=== PATIENT | female | born 1960 ===

== ENCOUNTER 2023-10-28 07:34 | Day surgery (SDC) | payer OTHER ==
[~2023-10-28 07:34] MED LIST: CILOSTAZOL50 MG PO; GRALISE600 MG PO; MONTELUKAST SODI4 M1 PO; SIMVASTATIN40 MG PO; SYNTHROID137 MCG PO; VITAMIN D31 ML
[2023-10-28] MEDS ORDERED: POVIDONE-IODINE 118 ML BOTT TOP ONE (12:58)
[2023-10-28] MEDS ORDERED: DIBUCAINE 30 GM TUBE ONE (12:58)
[2023-10-28] MEDS ORDERED: BUPIVACAINE HCL/MPF 0.5% 30ML VIAL ONE (12:58)
[2023-10-28] MEDS ORDERED: LIDOCAINE HCL 1%/EPINEPHRINE 20ML VIAL IJ ONE (12:59)
[2023-10-28] MEDS ORDERED: HEMOSTATIC MATRIX 1 KIT KIT TOP ONE (12:59)
[2023-10-28] MEDS ORDERED: CEFTRIAXONE SODIUM 2,000 MG VIAL ONE (13:03)
[2023-10-28] MEDS ORDERED: METRONIDAZOLE/SODIUM CHLORIDE 500 MG/100 ML PIGGYBACK IV ONE (13:03)
[2023-10-28] MEDS ORDERED: ONDANSETRON HCL 2 MG/ML VIAL ONE (14:39)
== END 2023-10-28 19:15 | disposition home or self-care (01) ==
LOC: CIR.AMB 07:34
PROVIDERS: ATTEND Colon & Rectal Surgery
DX: K64.2 Third degree hemorrhoids (principal); K64.8 Other hemorrhoids; K64.4 Residual hemorrhoidal skin tags; K62.6 Ulcer of anus and rectum; Z91.018 Allergy to other foods; I10 Essential (primary) hypertension